=== PATIENT | female | born 1950 | race Caucasian/White ===

== ENCOUNTER → 2023-10-27 11:01 | Outpatient (REF) | payer MEDICARE, OTHER, SELFPAY | LOC: RAD 11:01 | PROVIDERS: ATTENDING PHYSICIAN Family Medicine | DX: G70.00 Myasthenia gravis without (acute) exacerbation (principal); M25.511 Pain in right shoulder; R05.3 Chronic cough | CPT/HCPCS: 71046; 73030 ==

== ENCOUNTER → 2024-08-17 09:41 | Outpatient (REF) | payer MEDICARE, OTHER, SELFPAY | LOC: RAD 09:41 | PROVIDERS: ATTENDING PHYSICIAN Internal Medicine Rheumatology; FAMILY PHYSICIAN Family Medicine | DX: M81.0 Age-related osteoporosis without current pathological fracture (principal) | CPT/HCPCS: 77080 ==

== ENCOUNTER → 2024-12-24 13:54 | Outpatient (REF) | payer MEDICARE, OTHER, SELFPAY | LOC: RAD 13:54 | PROVIDERS: ATTENDING PHYSICIAN Specialist; FAMILY PHYSICIAN Family Medicine | DX: M96.1 Postlaminectomy syndrome, not elsewhere classified (principal) | CPT/HCPCS: 72131 ==

== ENCOUNTER 2024-12-24 19:16 | Emergency (ER) | payer MEDICARE, OTHER, SELFPAY ==
[2024-12-24 19:18] VITALS: BP 122/86
[2024-12-24 19:55] LABS: Hematocrit 39.5 % (37.0-47.0); Hemoglobin 12.6 g/dL (12.0-16.0); Mean Corp Hgb Conc. 31.9 g/dL (33.0-37.0); Mean Corpuscular Volume 84.8 fL (81.0-99.0); Nucleated Red Blood Cells % 0 %; Platelet Count 467 10^3/uL (130-400); Red Cell Dist. Width 13.6 % (11.5-14.5)
[2024-12-24 20:15] LABS: Urine Character Slightly Cloudy (Clear)
[2024-12-24 20:16] LABS: ALT (SGPT) 21 U/L (0-35); AST (SGOT) 33 U/L (14-36); Albumin 5.7 g/dl (3.5-5.0); Alkaline Phosphatase 63 U/L (38-126); Blood Urea Nitrogen 22 mg/dl (7-17); Calcium 9.8 mg/dl (8.4-10.2); Carbon Dioxide 21 mmol/L (22-30); Chloride 109 mmol/L (98-107); Glucose 105 mg/dl (70-99); Potassium 4.9 mmol/L (3.5-5.1); Sodium 139 mmol/L (135-145); Total Protein 7.7 g/dl (6.3-8.2); eGFR 48.09
[2024-12-24 20:37] LABS: Urine White Cell 26-30 /HPF (0-5)
[2024-12-24 21:23] VITALS: BMI 25.8
--- NOTE | 2024-12-24 21:29 | EDRN ---
Pt had a CT done. Pt informed she has something that might be blocking her ureter so she was advised to come to the ED. ot sees a neurologist for myasthenia gravis. Pt complained of pains in her head when she saw him couple weeks ago. Pt has a
stimulator in her back and neurologist wanted to do a MRI but instead ordered a CT. Pt and not sure why pt had a CT of her back. Pt says she is starting to have incontinence 'I have to run to the bathroom' and sometimes when she sits down,
she is unable to urinate. No burning/blood in urine, n/v. Pt notes and odor in her urine that started couple days ago - no difference in back pain, pt always has back pain. Pt with intermittent abd pain. No diarrhea/constipation, fever/chills.
Pt has chronic cough.
--- NOTE | 2024-12-24 21:31 | ED.GENMED ---
History of Present Illness
General
Chief Complaint: Abnormal Lab Value
Source: patient and spouse
Exam Limitations: none
Time Seen by Provider: 12/24/24 20:49
Nursing documentation reviewed up to this point in time: agreed with
History of Present Illness
History of Present Illness:
Patient with history of chronic back pain, currently being managed with implanted stimulator, presents to ED after outpatient CT scan of lumbar spine revealed abnormal findings, i.e. ureteral lesion with hydronephrosis. In addition, patient does
report foul-smelling urine for the past couple days. Denies worsening back pain. Denies urinary or bowel incontinence. Denies loss of sensation or weakness. Denies fever or chills. Denies nausea vomiting. Denies recent illness. Denies recent
trauma. Denies loss of appetite.
Past History
Past History
ED Past Medical History: HTN, Hypercholesterolemia, Hypothyroidism and Other (Myasthenia gravis, chronic back pain, Ulcerative Colitis)
ED Past Surgical History: Gynecological (Hysterectomy) and Orthopedic
Social History
Tobacco: Former smoker
Alcohol: Occasional
Drug: None
Personal:
Living: with family
Review of Systems
Review of Systems
Allergies reviewed?: Yes
All Other Systems: ROS reviewed and negative except as documented in HPI and ROS
Constitutional: Reports no symptoms; Denies fever or chills
Respiratory: Reports no symptoms
Cardiac: Reports no symptoms
ABD/GI: Reports no symptoms; Denies nausea or vomiting
: Reports other (foul smelling urine)
Musculoskeletal: Reports back pain
Skin: Reports no symptoms
Neurological: Reports no symptoms; Denies weakness
Phy Exam
Physical Exam
Physical Exam:
Physical Exam
General: no apparent distress, not acutely ill. afebrile
Head: nc/at. eomi
Neck: supple. no meningeal signs.
Heart: s1/s2 regular rate and rhythm
Lungs: no acute respiratory distress. clear bilaterally
Abdomen: normal bowel sounds. not tender.
Back: no midline tenderness. implanted stimulated noted over left lower back without surrounding erythema/swelling/warmth. no open wound noted
Neuro: alert and oriented x 3. no focal neurological deficits
Skin: no rash
Psychiatric: well kept. interactive and cooperative
Extremities: no edema. no calf tenderness.
Course
Orders/Labs/Results
Orders:
Orders
12/24/24 19:38
Complete Blood Count/With Diff Urgent
Comprehensive Metabolic Panel Urgent
Lactic Acid Urgent
Urine Microscopic Reflex Cult Urgent
Urine Reflex Culture from UA [Urinalysis Reflex To Culture] Urgent
Date Specimen was Collected: 12/24/24
Time Specimen was Collected: 19:22
Blood Culture Urgent
KATHARINE Source: Blood/Venous
Specimen Description:
Urine Culture Urgent
KATHARINE Source: U
Specimen Description:
Date Specimen was Collected: 12/24/24
Time Specimen was Collected: 19:22
Abnormal Lab Results
12/24/24
19:38
WBC 13.7 H 10^3/uL
(4.8-10.8)
MCHC 31.9 L g/dL
(33.0-37.0)
Plt Count 467 H 10^3/uL
(130-400)
Abs Immat Gran (auto) 0.1 H 10^3/uL
(0-0.05)
Absolute Neuts (auto) 11.2 H 10^3/uL
(1.4-6.5)
Absolute Monos (auto) 0.8 H 10^3/uL
(0.1-0.6)
Immature Gran % 0.9 H %
(0-0.5)
Neutrophils % 81.7 H %
(42.2-75.2)
Lymphocytes % 9.8 L %
(20.5-51.1)
Chloride 109 H mmol/L
(98-107)
Carbon Dioxide 21 L mmol/L
(22-30)
BUN 22 H mg/dl
(7-17)
Creatinine 1.2 H mg/dL
(0.6-1.0)
Glucose 105 H mg/dl
(70-99)
Albumin 5.7 H g/dl
(3.5-5.0)
Ur Occult Blood Reflex 3+ A
(Negative)
Leukocyte Esterase Rfl 3+ A
(Negative)
Urine RBC 7-10 A /HPF
(0-2)
Urine WBC (Reflex) 26-30 A /HPF
(0-5)
Urine Bacteria (Reflex) Few A
(Negative)
Urine Albumin (Reflex) 1+ A
(Neg - Trace)
12/24/24 19:38
12/24/24 19:38
Vital Signs
Initial and Last Documented VS:
Initial Vital Signs
Temp Pulse Resp BP Pulse Ox
98.0 F 81 20 122/86 99
12/24/24 19:18 12/24/24 19:18 12/24/24 19:18 12/24/24 19:18 12/24/24 19:18
Last Documented Vital Signs
Temp Pulse Resp BP Pulse Ox
98.0 F 70 14 147/77 99
12/24/24 19:18 12/24/24 21:36 12/24/24 21:36 12/24/24 21:36 12/24/24 21:36
MDM/Problems Addressed
MDM/Problems Addressed:
Outpatient CT abdomen pelvis report reviewed and discussed with on-call urologist, , as well as blood work and initial UA. Feels the patient can be discharged home for an urgent outpatient follow-up, including potential ureteroscopy and
biopsy, as needed. In the meantime, recommends starting patient on antibiotics, i.e. ciprofloxacin, along with outpatient follow-up with his colleague, Dr. Augustin. Patient otherwise is afebrile, hemodynamically stable, and nontoxic-appearing, at
time of discharge.
*Pulse Oximetry
SaO2: 99
Oxygen Mode of Delivery: Room air
Patient hypoxic: no
*Critical Care Note
Total Time (30-74mins, 75-104mins- exclusive of procedures): Not Applicable
ED Attending Note
-
Portions of this chart may have been created with voice recognition software.� Occasional wrong word or��sound alike� substitutions may have occurred due to the inherent limitations of voice recognition software.
Discharge Plan
Departure
Patient Disposition: Home (Routine Discharge)
Date of Disposition: 12/24/24
Time of Disposition: 21:36
Patient with high blood pressure during this ER visit?: Yes
Discharge Problem:
Abnormal CT of the abdomen, Acute UTI
Instructions: Urinary tract infections in adults
Prescriptions:
New
ciprofloxacin HCl 500 mg tablet
500 mg PO BID Qty: 14 0RF
No Action
levothyroxine 50 MCG tablet
50 mcg PO DAILY
trazodone 50 MG tablet
100 mg PO HS
fenofibrate nanocrystallized 145 MG tablet
145 mg PO DAILY
pyridostigmine bromide 60 MG tablet
60 mg PO Q3H
Patient Comments:
0700, 1000, 1300, 1600, 1900
venlafaxine [Effexor XR] 150 MG capsule,extended release 24hr
150 mg PO DAILY
Patient Comments:
take with 75mg = 225mg
omeprazole magnesium [Prilosec OTC] 20 MG tablet,delayed release (DR/EC)
20 mg PO DAILY
bupropion HCl 150 MG tablet extended release 24 hr
150 mg PO DAILY
clonazepam 0.5 MG tablet
0.5 mg PO HS Qty: 0 0RF
Patient Comments:
02/15/2021: last filled 09/23/20, 180 tabs for 90 days from [facility]
prednisone 5 MG tablet
10 mg PO DAILY
calcium carbonate-vitamin D3 [Oyster Shell Calcium-Vit D3] 500 MG tablet
1 tab PO DAILY
hydralazine 10 MG tablet
10 mg PO TID Qty: 90 0RF
doxazosin 2 MG tablet
2 mg PO BID Qty: 60 0RF
Vyvgart 20 mg/mL Solution
1,200 mg IV QWEEK
glycopyrrolate 1 mg Tablet
1 mg PO Q3H
venlafaxine [Effexor] 75 mg Tablet
75 mg PO DAILY
Patient Comments:
take with 150mg
Referrals:
Yordy Augustin MD [Active, Urology]
Sy Mustafa MD [Family Provider, Family Practice]
Activity Restrictions/Additional Instructions:
As discussed, please follow-up with referred urologist for further evaluation and treatment. Please consider return to ED with worsening symptoms, i.e. fever/worsening pain/vomiting. Your prescription has been sent electronically to [facility] pharmacy
in [place].
Interventions
Interventions:
*Risk Screen - Suicide Last Done: 12/24/24 21:24
*General Assessment Last Done: 12/24/24 19:18
*Neglect/Abuse Screening Last Done: 12/24/24 21:24
*ED- Fall Risk Assessment Last Done: 12/24/24 21:24
*Nursing Disposition Last Done: 12/24/24 21:47
Discharge Date and Time
Discharge Date/Time: 12/24/24 21:47
Print Language: IRISH
[2024-12-24 21:36] VITALS: BP 147/77
== END 2024-12-24 21:47 | disposition home or self-care (01) ==
LOC: EMR 19:16
PROVIDERS: EMERGENCY PHYSICIAN Emergency Medicine; FAMILY PHYSICIAN Family Medicine
DX: R94.8 Abnormal results of function studies of other organs and systems (principal); N39.0 Urinary tract infection, site not specified; R79.89 Other specified abnormal findings of blood chemistry; I10 Essential (primary) hypertension; E78.00 Pure hypercholesterolemia, unspecified; E03.9 Hypothyroidism, unspecified; G70.00 Myasthenia gravis without (acute) exacerbation; K51.90 Ulcerative colitis, unspecified, without complications; Z87.891 Personal history of nicotine dependence; Z90.710 Acquired absence of both cervix and uterus
CPT/HCPCS: 99283; 80053; 81003; 81015; 83605; 85025; 87040; 87086

== ENCOUNTER → 2025-02-07 13:47 | Outpatient (REF) | payer MEDICARE, OTHER, SELFPAY | LOC: SDSPAT 13:47 | PROVIDERS: ATTENDING PHYSICIAN Urology; FAMILY PHYSICIAN Family Medicine | DX: N28.89 Other specified disorders of kidney and ureter (principal); C66.2 Malignant neoplasm of left ureter; C67.1 Malignant neoplasm of dome of bladder; C67.3 Malignant neoplasm of anterior wall of bladder; C67.2 Malignant neoplasm of lateral wall of bladder; N13.5 Crossing vessel and stricture of ureter without hydronephrosis; Z01.818 Encounter for other preprocedural examination | CPT/HCPCS: 36415; 93005 ==

== ENCOUNTER 2025-02-10 06:16 | Day surgery (SDC) | payer MEDICARE, OTHER, SELFPAY ==
--- NOTE | 2025-02-04 10:38 | PTCARENOTE ---
Abnormal eGFR 48.09 reported to Sonia at Dr Augustin's office.
[2025-02-07 14:04] VITALS: BMI 25.1
--- NOTE | 2025-02-08 16:19 | PTCARENOTE ---
Abnormal ECG done 02/07/[address] Boss, no further interventions requested.
[2025-02-10] VITALS (7 sets, daily range): BP systolic 114–149; BP diastolic 64–81; BMI 25.1
[2025-02-10] MEDS: NORMOSOL-R/PLASMALYTE-A 1000 IV (08:45)
[2025-02-10] MEDS: ROXICODONE 5 MG PO (12:43)
--- NOTE | 2025-02-10 13:12 | PTCARENOTE ---
Patient voided twice and is having a lot of pressure/pain in the abdomen. When patient first arrived in [facility] pain was 8/10. Roxicodone given and pain is now 5/10. Dr. Augustin notified that patient did void twice and is having a lot of pressure/pain.
Will monitor patient.
== END 2025-02-10 13:29 | disposition home or self-care (01) ==
LOC: SDS 06:16
PROVIDERS: ATTENDING PHYSICIAN Urology
DX: C66.2 Malignant neoplasm of left ureter (principal); C67.1 Malignant neoplasm of dome of bladder; C67.3 Malignant neoplasm of anterior wall of bladder; C67.2 Malignant neoplasm of lateral wall of bladder; N13.5 Crossing vessel and stricture of ureter without hydronephrosis
CPT/HCPCS: 52354; 74420; 76000; 88307; A4300; C1894; C2617

== ENCOUNTER → 2025-02-18 16:01 | Outpatient (REF) | payer MEDICARE, OTHER, SELFPAY | LOC: RAD 16:01 | PROVIDERS: ATTENDING PHYSICIAN Urology; FAMILY PHYSICIAN Family Medicine | DX: C68.9 Malignant neoplasm of urinary organ, unspecified (principal) | CPT/HCPCS: 71260; 74178; Q9967 ==

== ENCOUNTER 2025-03-24 10:45 | Inpatient (IN) | payer MEDICARE, OTHER, SELFPAY ==
[2025-03-24] VITALS (15 sets, daily range): BP systolic 83–152; BP diastolic 64–89; BMI 25.8
[2025-03-24] MEDS: NORMOSOL-R/PLASMALYTE-A 1000 IV ×2 (11:32→20:35)
[2025-03-24] MEDS: TYLENOL 1000 MG PO (13:40)
--- NOTE | 2025-03-24 14:07 | PTCARENOTE ---
Patient checked on multiple times and offered bathroom and warm blankets several times. Patients upset that patient was not taken back yet but told patient and that patient was called for by the OR and she would be taken soon. Will
monitor patient.
[2025-03-24 15:14] LABS: B.E. - POC -2.6 mmol/L; Glucose - POC 106 mg/dl (70-99); HCO3 - POC 23 mmol/L (21-28); Hematocrit - POC 32 % PCV (37-47); Hemodilution- POC No; Hemoglobin Calculated - POC 10.9; Ionized Calcium - POC 1.04 mmol/L (1.15-1.33); Lactate - POC 0.89 mmol/L (0.36-0.75); O2 Saturation %Calculated-POC 99.8 % (94-98); PCO2 - POC 43 mmHg (35-48); PO2 - POC 249 mmHg (83-108); Potassium - POC 4.0 mmol/L (3.5-5.1); Sodium - POC 139 mmol/L (136-145); Specimen Type - POC Arterial; pH - POC 7.34 (7.35-7.45)
[2025-03-24] MEDS: SUBLIMAZE 25 MCG IV ×2 (19:12→19:59)
[2025-03-24] MEDS: SUBLIMAZE 50 MCG IV (19:42)
[2025-03-24 19:46] LABS: Hematocrit 33.5 % (37.0-47.0); Hemoglobin 10.9 g/dL (12.0-16.0)
[2025-03-24 20:02] LABS: Blood Urea Nitrogen 18 mg/dl (7-17); Calcium 8.2 mg/dl (8.4-10.2); Carbon Dioxide 24 mmol/L (22-30); Chloride 107 mmol/L (98-107); Estimated Creatinine Clearance 41 ml/min; Glucose 122 mg/dl (70-99); Potassium 4.0 mmol/L (3.5-5.1); Sodium 132 mmol/L (135-145); eGFR 59.86
--- NOTE | 2025-03-24 20:25 | PTCARENOTE ---
Pt received from PACU following robotic nephroureterectomy. Incisions to abdomen with glue and open to air. IV fluids started per orders. Indwelling urinary catheter draining blood tinged urine. Initial assessment and admission questions completed.
Call manning within reach and bed in lowest position.
[2025-03-24] MEDS: MESTINON 60 MG PO (22:04)
[2025-03-24] MEDS: SENOKOT 17.2 MG PO (22:04)
[2025-03-24] MEDS: ROXICODONE 10 MG PO (22:12)
[2025-03-24] MEDS: ROBINUL 1 MG PO (22:13)
[2025-03-24] MEDS: APRESOLINE 10 MG PO (22:18)
[2025-03-25] MEDS: ROXICODONE 5 MG PO (00:44)
[2025-03-25 03:00] VITALS: BP 113/75
[2025-03-25] MEDS: MORPHINE SULFATE 2 MG IV ×2 (04:36→06:26)
[2025-03-25] MEDS: SYNTHROID 50 MCG PO (05:30)
[2025-03-25 07:15] LABS: Hematocrit 32.9 % (37.0-47.0); Hemoglobin 10.1 g/dL (12.0-16.0); Mean Corp Hgb Conc. 30.7 g/dL (33.0-37.0); Mean Corpuscular Volume 85.9 fL (81.0-99.0); Platelet Count 284 10^3/uL (130-400); Red Cell Dist. Width 13.8 % (11.5-14.5)
[2025-03-25 07:30] VITALS: BP 137/75
--- NOTE | 2025-03-25 07:35 | PTCARENOTE ---
Telemetry intermittently exhibiting Ventricular Bigeminy and then converting back to NSR. Pt asymptomatic. Dr Augustin notified. Care ongoing.
[2025-03-25 07:46] LABS: Blood Urea Nitrogen 13 mg/dl (7-17); Calcium 8.0 mg/dl (8.4-10.2); Carbon Dioxide 26 mmol/L (22-30); Chloride 104 mmol/L (98-107); Estimated Creatinine Clearance 41 ml/min; Glucose 84 mg/dl (70-99); Potassium 3.8 mmol/L (3.5-5.1); Sodium 130 mmol/L (135-145); eGFR 59.86
--- NOTE | 2025-03-25 08:21 | W.PN.URO.CBU ---
Today's Communication / Plan
-
- Cardiology consult for atypical rhythm intraoperatively and bigeminy on tele
- Reg diet
- OOB/ambulate. PT/OT for ambulation and dispo planning. Possible she will need rehab
- Case management consult
- Maintain haley for 1 week
- Trend hyponatremia - likely post op SIADH
Assessment / Plan
-
74F with myasthenia gravis, bladder cancer and L upper tract urothelial carcinoma
s/p robotic L nephroureterectomy 03/24
- Cardiology consult for atypical rhythm intraoperatively and bigeminy on tele
- Reg diet
- OOB/ambulate. PT/OT for ambulation and dispo planning. Possible she will need rehab
- Case management consult
- Maintain haley for 1 week
- Trend hyponatremia - likely post op SIADH
Diagnosis
-
Date of Service: March 25, 2025
-
Patient Diagnosis:
Urothelial carcinoma
Myasthenia gravis
Arrhythmia
Post Op s/p robotic L nephroureterectomy 03/24
Subjective
-
Poorly controlled pain overnight
Abdominal pain
Had some R shoulder pain now resolved
No chest pain
Bigeminy on monitor
Objective
-
Vital Signs
Temp Pulse Resp BP Pulse Ox
98.2 F 83 20 137/75 93
03/25/25 07:30 03/25/25 07:30 03/25/25 07:30 03/25/25 07:30 03/25/25 07:30
Intake and Output
03/24/25 03/25/25 03/26/25
06:59 06:59 06:59
Intake Total 2250 / 2250
Output Total 1175 / 1175
Balance 1075 / 1075
Intake:
Oral fluids 750 / 750
IV fluids (Total) 1500 / 1500
nomosol 500 / 500
Output:
Urine, Haley 1175 / 1175
Laboratory Results
03/25/25 06:38
03/25/25 06:38
Physical Exam
-
General - well developed, well nourished, no acute distress
Chest - clear bilaterally
Abdomen - soft, tender, nondistended
Clear urine in haley
Skin - warm & dry with no rash
Neuro - AOx3, no motor deficits
Extremities - no clubbing, no cyanosis, no edema
Incision - clean, dry
Dressing - clean, dry, intact
--- NOTE | 2025-03-25 09:01 | CON.CAR ---
Addendum entered and electronically signed by Phillip Arenas MD 03/25/25 10:45:
I saw and examined the patient.
The RHEUMATOLOGY SPECIALIST's note was reviewed and I agree with the note.
Comment:
74 year-old female with HTN, HLD, myasthenia gravis, and bladder cancer who underwent robotic left nephroureterectomy on 03/24/[address] Augustin. Cardiology is consulted for tachyarrhythmia during surgery. I reviewed her telemetry, ECGs, and rhythm
strips from surgery. She appears to be in sinus rhythm with intermittent bundle branch block which is new. Unfortunately we have not caught it on 12 lead ECG. I reviewed old ECGs going back to 2008 which show no bundle branch block. She denies chest
pain, palpitations, orthopnea, and leg swelling. She has chronic stable dyspnea which she attributes to myasthenia gravis. She had an echo and Idania in 2020 which were normal.
Physical exam: RRR, no murmurs/rubs/gallops, no LE edema, clear lungs
ECG 03/24/25: NSR, non specific ST-T wave changes, QTc 497 ms
ECG 03/25/25: NSR, non specific ST-T wave changes
Intermittent bundle branch block: Rule out structural heart disease with echo. Evaluate for stress test as outpatient. Does not require any treatment.
Tachyarrhythmia: Rhythm strips from OR show bundle branch block so rhythm was likely sinus tach vs SVT with aberrancy. No recurrent SVT or any ventricular arrhythmias on telemetry since OR.
Original Note:
Consultation
Consultation Request
Date/Time Consultation Requested: 03/25/25 8:30a
Date/Time Consultation Performed: 03/25/25 9a
Requesting Provider: Dr. Augustin
Performing Provider: CR Coleman for Dr. Arenas
Reason for Consultation: arrhythmia
Medical History
-
Chief Complaint: nephroureterectomy
History of Present Illness:
Mrs. Hutchinson is a 74 yo female with HTN, HLD, GERD, myasthenia gravis, ulcerative colitis, hemorrhoids, spinal stenosis, bladder cancer and left upper tract urothelial carcinoma, who is s/p robotic left nephroureterectomy on 03/24/[address] Augustin.
During the surgery she had a tachycardic arrhythmia and therefore we are consulted. Tele reviewed and shows intermittent LBBB, which is new.
Past Medical History
Past Medical History: Other (as above)
Past Surgical History: Gynecological (hysterectomy), Orthopedic (spine surgery ) and Urological (left ureteral stent 02/2025 and as above)
Social History
Tobacco: Former Smoker
Alcohol: Occasional (wine/beer 2-3 a week)
Drug: None
Personal:
Living: With Family
Family History
Family History: Reviewed & Not Pertinent
Allergies / Home Medications
Allergy/AdvReac Type Severity Reaction Status Date / Time
atenolol Allergy AVOID BETA Verified 03/24/25 10:55
BLOCKERS.
PATIENT
HAS
MYESTHENIA
GRAVIS
azathioprine (From Imuran) Allergy GI issues Verified 03/24/25 10:55
hydromorphone (From Dilaudid) Allergy CONFUSION Verified 03/24/25 10:55
AND
COMBATIVE
labetalol Allergy AVOID BETA Verified 03/24/25 10:55
BLOCKERS.
PATIENT
HAS
MYESTHENIA
GRAVIS
metoprolol (From Lopressor) Allergy AVOID BETA Verified 03/24/25 10:55
BLOCKERS.
PATIENT
HAS
MYESTHENIA
GRAVIS
�Medication �Instructions �Recorded �Confirmed �Type
fenofibrate nanocrystallized 145 145 mg PO DAILY High cholesterol 11/09/16 03/24/25 History
mg tablet
levothyroxine 50 mcg tablet 50 mcg PO DAILY Thyroid 11/09/16 03/24/25 History
trazodone 50 mg tablet 100 mg PO HS Sleep 11/09/16 03/24/25 History
pyridostigmine bromide 60 mg tablet 60 mg PO 07,,,16,19 myasthenia 11/29/16 03/24/25 History
gravis
bupropion HCl 150 mg 24 hr tablet, 150 mg PO DAILY Mental 09/22/20 03/24/25 History
extended release Health/Anxiety
omeprazole magnesium 20 mg 20 mg PO DAILY Gastrointestinal 09/22/20 03/24/25 History
tablet,delayed release (Prilosec issue
OTC)
venlafaxine 150 mg 150 mg PO DAILY Mental 09/22/20 03/24/25 History
capsule,extended release 24 hr Health/Anxiety
(Effexor XR)
calcium 500 mg (as 1 tab PO DAILY Supplement 02/15/21 03/24/25 History
carbonate)-vitamin D3 5 mcg (200
unit) tablet (Oyster Shell
Calcium-Vitamin D3)
prednisone 5 mg tablet 10 mg PO DAILY Autoimmune disorder 02/15/21 03/24/25 History
hydralazine 10 mg tablet 10 mg PO TID #90 tabs 02/16/21 03/24/25 Rx
efgartigimod elroy-fcab 20 mg/mL 1,200 mg IV QWEEK Myasthenia gravis 01/22/22 03/24/25 History
intravenous solution (Vyvgart)
glycopyrrolate 1 mg tablet 1 mg PO ,,,16,19 12/24/24 03/24/25 History
Anticholinergic Agent
venlafaxine 75 mg tablet 75 mg PO DAILY Mental 12/24/24 03/24/25 History
Health/Anxiety
Medcial Marijuana 1 gum PO HS Sleep 02/03/25 03/24/25 History
amlodipine 5 mg tablet 5 mg PO DAILY Blood Pressure 02/03/25 03/24/25 History
oxycodone 5 mg tablet 5 mg PO TID PRN pain 02/03/25 03/24/25 History
Dee Relief 2 cap PO DAILY Supplement 03/17/25 03/24/25 History
clonazepam 0.5 mg tablet 0.5 mg PO HS PRN sleep 03/17/25 03/24/25 History
Review of Systems
-
History Source: Patient and Coordinating Provider
Physical Exam
Vital Signs
Temp Pulse Resp BP Pulse Ox
98.2 F 83 20 137/75 93
03/25/25 07:30 03/25/25 07:30 03/25/25 07:30 03/25/25 07:30 03/25/25 07:30
Lab Results
03/25/25 06:38
03/25/25 06:38
Physical Exam
General: Well Developed and Other (mild distress from abdominal pain )
HEENT: Normocephalic and Moist Mucous Membranes
Respiratory: Clear and Non Labored Respirations
Cardiac: S1/S2 and Regular Rhythm
Breast: Deferred by me
GI: Soft and Tender (diffuse)
Rectal: Deferred by Provider
Musculoskeletal: No Clubbing, No Cyanosis and No Edema
Skin: Warm and Dry
Neuro: AO x 3
Psych: Calm
Impression / Plan
-
LBBB - new, intermittent.
- asymptomatic.
- HR during procedure up to 120s, post op has been 70s-80s.
- will check echo today.
- echo 03/2021 EF 60%.
- Lexiscan stress test 03/2021: EF 65%, no ischemia.
Bladder cancer and left upper tract urothelial carcinoma - s/p robotic left nephroureterectomy on 03/24/[address] Augustin.
- pain meds per urology.
HTN - stable on meds, continue.
HLD - stable on fenofibrate.
Data Reviewed
-
EKG: Tracing Personally Visualized and interpreted
Medical Tests (Nuc Med, Echo etc): Report Reviewed by me (echo 03/2021: EF 60%, mild MR, AR) and Other (Lexiscan stress test 03/2021: EF 65%, no ischemia )
Labs: Labs Reviewed by me
Old Records: Reviewed
[2025-03-25] MEDS: ROXICODONE 10 MG PO (09:24)
[2025-03-25] MEDS: WELLBUTRIN XL (24 hour extended release) 150 MG PO (09:25)
[2025-03-25] MEDS: EFFEXOR XR 75 MG PO (09:25)
[2025-03-25] MEDS: PROTONIX 40 MG PO (09:25)
[2025-03-25] MEDS: EFFEXOR XR 150 MG PO (09:26)
[2025-03-25] MEDS: DELTASONE 10 MG PO (09:26)
[2025-03-25] MEDS: ROBINUL 1 MG PO ×3 (09:26→15:07)
[2025-03-25] MEDS: APRESOLINE 10 MG PO ×2 (09:26→15:07)
[2025-03-25] MEDS: MESTINON 60 MG PO ×3 (09:26→15:07)
[2025-03-25] MEDS: NORVASC 5 MG PO (09:26)
[2025-03-25] MEDS: SENOKOT 17.2 MG PO (09:26)
[2025-03-25 09:27] VITALS: BP 133/66; PULSE 81; O2SAT 94
[2025-03-25 09:30] VITALS: BP 133/66; PULSE 80
--- NOTE | 2025-03-25 10:47 | VNURNOTE ---
Home Health Liaison met with patient at bedside to discuss [facility] nurse/therapy, visits, schedule and homebound status. Patient is agreeable and understands that visits at home will be 2-3 x per week to assess and teach medical and haley
management. Patient is aware that [facility] will contact them for start of care within a week after discharge from . Provided contact number for [facility].
[facility] referral completed in [facility].
--- NOTE | 2025-03-25 11:04 | CM ---
CM following re: discharge planning.
Reviewed pt's chart, met with pt. Pt's daughter and son in law at bedside.
Pt is a 74 year old female, admitted with primary dx of myasthenia gravis, bladder cancer and L upper tract urothelial carcinoma
s/p robotic L nephroureterectomy 03/24.
Pt reports she lives with 2SH, no steps, has 3 supportive children. Pt reports she ambulates with a cane, has a walker. No VN or SNF history.
CM consulted to arrange VN services for Nair catheter care. Pt preferred [facility]. A referral to [facility] made.
PCP: christopher Mustafa
Pharmacy: [facility]
D/C plan: home with [facility] and family support. Daughter to transport at discharge.
CM will follow with discharge plan updates as hospitalization progresses
[2025-03-25 12:05] VITALS: BP 151/67
[2025-03-25 15:06] VITALS: BP 132/66
[2025-03-25] MEDS: ROXICODONE 15 MG PO (15:08)
--- NOTE | 2025-03-25 15:34 | W.DS.TRANS ---
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
-
Discharge Instructions:
Sleep Apnea Risk Low
Instructions:
Stand-Alone Forms:
Changes to Home Medications: No
Discharge Medications:
DC Medications w/original date entered in [facility]
fenofibrate nanocrystallized 145 mg tablet 145 mg PO DAILY High cholesterol 11/09/16
levothyroxine 50 mcg tablet 50 mcg PO DAILY Thyroid 11/09/16
trazodone 50 mg tablet 100 mg PO HS Sleep 11/09/16
pyridostigmine bromide 60 mg tablet 60 mg PO 07,10,,16,19 myasthenia gravis 11/29/16
bupropion HCl 150 mg 24 hr tablet, extended release 150 mg PO DAILY Mental Health/Anxiety 09/22/20
omeprazole magnesium 20 mg tablet,delayed release (Prilosec OTC) 20 mg PO DAILY Gastrointestinal issue 09/22/20
venlafaxine 150 mg capsule,extended release 24 hr (Effexor XR) 150 mg PO DAILY Mental Health/Anxiety 09/22/20
calcium 500 mg (as carbonate)-vitamin D3 5 mcg (200 unit) tablet (Oyster Shell Calcium-Vitamin D3) 1 tab PO DAILY Supplement 02/15/21
prednisone 5 mg tablet 10 mg PO DAILY Autoimmune disorder 02/15/21
hydralazine 10 mg tablet 10 mg PO TID #90 tabs 02/16/21
efgartigimod elroy-fcab 20 mg/mL intravenous solution (Vyvgart) 1,200 mg IV QWEEK Myasthenia gravis 01/22/22
glycopyrrolate 1 mg tablet 1 mg PO 07,10,,16,19 Anticholinergic Agent 12/24/24
venlafaxine 75 mg tablet 75 mg PO DAILY Mental Health/Anxiety 12/24/24
Medcial Marijuana 1 gum PO HS Sleep 02/03/25
amlodipine 5 mg tablet 5 mg PO DAILY Blood Pressure 02/03/25
oxycodone 5 mg tablet 5 mg PO TID PRN pain 02/03/25
Dee Relief 2 cap PO DAILY Supplement 03/17/25
clonazepam 0.5 mg tablet 0.5 mg PO HS PRN sleep 03/17/25
Home Medication Changes
Pending Results: Yes (pathology)
--- NOTE | 2025-03-25 17:04 | W.PN.UPDATE ---
Update Note
Progress Note Update
Patient ambulated with PT today
As of this afternoon interested in discharge to home
Discussed PTs recs for continued inpatient eval and likely rehab
Her and daughter care for her at home at baseline and help with mobility
She feels safe at her current mobility to go home
reviewed discharge instructions and reasons to call or go to ER
== END 2025-03-25 18:08 | disposition home health service (06) | DRG 657 ==
LOC: 2 SOUTH 10:45
PROVIDERS: ADMITTING PHYSICIAN Urology; CONSULT PHYSICIAN Student in an Organized Health Care Education/Training Program; FAMILY PHYSICIAN Family Medicine
PROC: 07BC4ZX Excision of Pelvis Lymphatic, Percutaneous Endoscopic Approach, Diagnostic (ICD-10-PCS; 2025-03-24)
PROC: 0TJB8ZZ Inspection of Bladder, Via Natural or Artificial Opening Endoscopic (ICD-10-PCS; 2025-03-24)
PROC: 0TT14ZZ Resection of Left Kidney, Percutaneous Endoscopic Approach (ICD-10-PCS; 2025-03-24)
PROC: 0TT74ZZ Resection of Left Ureter, Percutaneous Endoscopic Approach (ICD-10-PCS; 2025-03-24)
DX: C66.2 Malignant neoplasm of left ureter (principal); E22.2 Syndrome of inappropriate secretion of antidiuretic hormone; K51.90 Ulcerative colitis, unspecified, without complications; G70.00 Myasthenia gravis without (acute) exacerbation; I10 Essential (primary) hypertension; E78.5 Hyperlipidemia, unspecified; K21.9 Gastro-esophageal reflux disease without esophagitis; I44.7 Left bundle-branch block, unspecified; C67.9 Malignant neoplasm of bladder, unspecified; Z90.710 Acquired absence of both cervix and uterus; Z87.891 Personal history of nicotine dependence; Z79.890 Hormone replacement therapy; Z79.899 Other long term (current) drug therapy
CPT/HCPCS: 80048; 85014; 85018; 85027; 86850; 86900; 86901; 88307; 93005; 93306; 97116; 97163; 97167; 97535

== ENCOUNTER → 2025-04-06 11:14 | Outpatient (REF) | payer MEDICARE, OTHER, SELFPAY ==
[2025-04-06 12:06] LABS: Hematocrit 38.1 % (37.0-47.0); Hemoglobin 12.1 g/dL (12.0-16.0); Mean Corp Hgb Conc. 31.8 g/dL (33.0-37.0); Mean Corpuscular Volume 83.0 fL (81.0-99.0); Nucleated Red Blood Cells % 0 %; Platelet Count 535 10^3/uL (130-400); Red Cell Dist. Width 13.7 % (11.5-14.5)
[2025-04-06 12:51] LABS: Blood Urea Nitrogen 16 mg/dl (7-17); Calcium 10.0 mg/dl (8.4-10.2); Carbon Dioxide 21 mmol/L (22-30); Chloride 108 mmol/L (98-107); Glucose 110 mg/dl (70-99); Potassium 4.0 mmol/L (3.5-5.1); Sodium 136 mmol/L (135-145); eGFR 48.09
== END ==
LOC: REG 11:14
PROVIDERS: ATTENDING PHYSICIAN Urology; FAMILY PHYSICIAN Family Medicine
DX: C67.8 Malignant neoplasm of overlapping sites of bladder (principal); C68.9 Malignant neoplasm of urinary organ, unspecified
CPT/HCPCS: 36415; 80048; 85025